=== PATIENT | female | born 1985 ===

== ENCOUNTER 2016-06-12 20:01 | Emergency (ER) | payer MEDICAID ==
--- NOTE | 2016-06-12 23:11 | Emergency Department Report ---
ED General Adult HPI - General Chief complaint: Chest Pain Stated complaint: BURNING SENSATION IN CHEST Time Seen by Provider: 06/12/16 21:16 Source: patient Mode of arrival: Ambulatory Limitations: No Limitations - History of Present Illness Initial comments: 30-year-old female comes in for complaint of "my lungs are burning" reports similar pain about one month ago when she had pneumonia. She complains of pain with deep breathing. She complains of pain across her lower chest for 2 weeks. She does admit to having a productive cough occasionally. Patient denies any nausea no vomiting. - Related Data Previous Rx's Medication Instructions Recorded Last Taken Type Ranitidine HCl [Zantac 150 MG TAB] 150 mg PO BID #60 tablet 06/12/16 Unknown Rx Allergies Allergy/AdvReac Type Severity Reaction Status Date / Time No Known Allergies Allergy Verified 11/26/15 00:45 ED Review of Systems ROS: Stated complaint: BURNING SENSATION IN CHEST Other details as noted in HPI Constitutional: no symptoms reported Respiratory: SOB with exertion Cardiovascular: other (chest burning) ED Past Medical Hx - Past Medical History Previous Medical History?: No - Surgical History Additional Surgical History: TUBAL LIGATION. left knee surgery. - Social History Smoking Status: Current Every Day Smoker Substance Use Type: None - Medications Home Medications: Home Medications Medication Instructions Recorded Confirmed Last Taken Type Ranitidine HCl [Zantac 150 MG TAB] 150 mg PO BID #60 tablet 06/12/16 Unknown Rx ED Physical Exam - General Limitations: No Limitations General appearance: alert, in no apparent distress - Eye Eye exam: Present: normal appearance, PERRL - ENT ENT exam: Present: normal exam - Respiratory Respiratory exam: Present: normal lung sounds bilaterally. Absent: respiratory distress, wheezes, rales, chest wall tenderness - Cardiovascular Cardiovascular Exam: Present: regular rate, normal rhythm, normal heart sounds - GI/Abdominal GI/Abdominal exam: Present: soft. Absent: distended, tenderness ED Course Vital Signs 06/12/16 20:06 Temperature 98.4 F Pulse Rate 77 Blood Pressure 133/87 O2 Sat by Pulse 100 Oximetry ED Medical Decision Making - Radiology Data Radiology results: image reviewed FINAL REPORT PROCEDURE: XR CHEST ROUTINE 2V TECHNIQUE: Two views of the chest are obtained HISTORY: chest burning with deep breating COMPARISON: No prior studies are available for comparison. FINDINGS: The heart is normal in size. There is no focal infiltrate, pneumothorax or pleural effusion. IMPRESSION: No abnormalities are seen. - Medical Decision Making Been evaluated by this provider fast tract chest x-ray was ordered. Review of chest very x-ray was normal. Her chest burning we will try Zantac's 150 mg one tablet by mouth twice a day. And have patient follow up with her primary care provider. Critical care attestation.: If time is entered above; I have spent that time in minutes in the direct care of this critically ill patient, excluding procedure time. ED Disposition Clinical Impression: Burning in the chest Disposition: DISCHARGED TO HOME OR SELFCARE Is pt being admited?: No Does the pt Need Aspirin: No Condition: Stable Instructions: Chest Pain (ED) Additional Instructions: Medication at described follow with the primary care provider within 3-5 days if symptoms does not improve. Prescriptions: Ranitidine HCl [Zantac 150 MG TAB] 150 mg PO BID #60 tablet Referrals: PRIMARY CARE, [Primary Care Provider] - 3-5 Days JYOTI TOVAR MD [Staff Physician] - 3-5 Days [facility] [Provider Group] - 3-5 Days [facility] [Provider Group] - 3-5 Days Forms: Work/School Release Form(ED)
[2016-06-12 23:38] VITALS: BP 132/73
== END 2016-06-13 00:09 | disposition home or self-care (01) ==
LOC: ED 20:01
DX: R07.9 Chest pain, unspecified (principal); F17.200 Nicotine dependence, unspecified, uncomplicated
CPT/HCPCS: 71020; 93005; 93010; 99283

== ENCOUNTER 2017-09-08 23:55 | Emergency (ER) | payer MEDICAID ==
[2017-09-09] MEDS ORDERED: ASPIRIN PO ONE (00:15)
[2017-09-09 01:19] LABS: Basophils # (Auto) 0.1 K/mm3 (0.0-0.1); Basophils % (Auto) 0.8 % (0.0-1.8); Eosinophils # (Auto) 0.2 K/mm3 (0.0-0.4); Eosinophils % (Auto) 2.2 % (0.0-4.3); Hematocrit 31.5 % (30.3-42.9); Lymphocytes % (Auto) 27.3 % (13.4-35.0); Mean Corpuscular HGB Conc 32 % (30-34); Mean Corpuscular Volume 75 fl (79-97); Monocytes # (Auto) 0.6 K/mm3 (0.0-0.8); Monocytes % (Auto) 7.7 % (0.0-7.3); Platelet Count 309 K/mm3 (140-440); Red Cell Distribution Width 16.6 % (13.2-15.2)
[2017-09-09 01:35] LABS: BUN/Creatinine Ratio 10; Blood Urea Nitrogen 7 mg/dL (7-17); Calcium 8.4 mg/dL (8.4-10.2); Hemolysis Index 4
[2017-09-09 01:38] LABS: Mean Corpuscular Hemoglobin 24 pg (28-32)
[2017-09-09 02:06] LABS: Bilirubin,Urine NEG (Negative); Blood,Urine NEG (Negative); Color,Urine Yellow (Yellow); Mucus,Urine FEW /HPF; Protein,Urine <15 mg/dL mg/dL (Negative); Urobilinogen,Urine < 2.0 mg/dL (<2.0)
[2017-09-09 03:27] VITALS: BP 124/76
== END 2017-09-09 04:46 | disposition left against medical advice (07) ==
LOC: ED 23:55
DX: R07.89 Other chest pain (principal); Z53.21 Procedure and treatment not carried out due to patient leaving prior to being seen by health care provider
CPT/HCPCS: 36415; 80048; 81001; 84484; 85025; 93005; 93010